=== PATIENT | female | born 2000 | race Hispanic/Latino ===

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

== ENCOUNTER 2021-06-29 14:38 | Emergency (ER) | payer OTHER, SELFPAY ==
[2021-06-29] MEDS ORDERED: Dexamethasone 4 mg/ml Vial ONE (15:05)
[2021-06-29] MEDS ORDERED: Ketorolac Tromethamine 30 MG/ML VIAL ONE (15:05)
[2021-06-29] MEDS ORDERED: Acetaminophen 500 MG TAB ONE (15:05)
== END 2021-06-29 15:45 | disposition home or self-care (01) ==
LOC: NAV ERS 14:38
DX: M54.5 Low back pain (principal); E11.9 Type 2 diabetes mellitus without complications
CPT/HCPCS: 96372; 99283; J1100; J1885

== ENCOUNTER 2023-03-24 19:49 | Emergency (ER) | payer OTHER, SELFPAY ==
[2023-03-24] MEDS ORDERED: Lidocaine 1% w/Epinephrine 1:100K 20 ML VIAL ONE (20:17)
[2023-03-24] MEDS ORDERED: Bacitracin 1 PK ONE (20:20)
[2023-03-24] MEDS ORDERED: Boostrix 0.5 ML (Tdap) VIAL (>/=7 yrs of age) ONE (20:20)
[2023-03-24] MEDS ORDERED: Rabies Immune Globulin/PF 300 UNITS/ML VIAL ONE ×2 (20:52→21:03)
[2023-03-24] MEDS ORDERED: Rabies Vaccine Human 2.5 UNITS VIAL ONE (20:54)
[2023-03-24] MEDS ORDERED: Amoxicillin/Potassium Clav 875 MG TAB ONE (22:02)
== END 2023-03-24 22:05 | disposition home or self-care (01) ==
LOC: NAV ERS 19:49
DX: S81.851A Open bite, right lower leg, initial encounter (principal); S81.852A Open bite, left lower leg, initial encounter; E11.9 Type 2 diabetes mellitus without complications; W54.0XXA Bitten by dog, initial encounter; Z23 Encounter for immunization
CPT/HCPCS: 12004; 90375; 90471; 90472; 90675; 90715; 96372

== ENCOUNTER 2023-03-29 16:52 | Emergency (ER) | payer SELFPAY | END 2023-03-29 17:17 | disposition home or self-care (01) | LOC: NAV ERS 16:52 | DX: L03.115 Cellulitis of right lower limb (principal); E11.9 Type 2 diabetes mellitus without complications | CPT/HCPCS: 99283 ==

== ENCOUNTER 2023-03-31 13:05 | Emergency (ER) | payer SELFPAY ==
[2023-03-31] MEDS ORDERED: Rabies Vaccine Human 2.5 UNITS VIAL ONE (13:10)
== END 2023-03-31 13:38 | disposition home or self-care (01) ==
LOC: NAV ERS 13:05
DX: Z23 Encounter for immunization (principal)
CPT/HCPCS: 90471; 90675

== ENCOUNTER 2023-04-03 08:51 | Emergency (ER) | payer SELFPAY ==
[2023-04-03] MEDS ORDERED: Bacitracin 1 PK ONE (09:58)
== END 2023-04-03 10:10 | disposition home or self-care (01) ==
LOC: NAV ERS 08:51
DX: S81.852D Open bite, left lower leg, subsequent encounter (principal); S81.851D Open bite, right lower leg, subsequent encounter; Z48.02 Encounter for removal of sutures; W54.0XXD Bitten by dog, subsequent encounter

== ENCOUNTER 2023-08-09 22:43 | Emergency (ER) | payer OTHER, SELFPAY | END 2023-08-09 23:05 | disposition home or self-care (01) | LOC: NAV ERS 22:43 | DX: R04.0 Epistaxis (principal); E11.9 Type 2 diabetes mellitus without complications; D64.9 Anemia, unspecified; E66.9 Obesity, unspecified | CPT/HCPCS: 99283 ==

== ENCOUNTER 2024-05-18 22:35 | Emergency (ER) | payer OTHER, SELFPAY ==
[2024-05-18] MEDS ORDERED: Ibuprofen 800 MG TAB ONE (23:06)
[2024-05-18] MEDS ORDERED: HYDROcodone/Acetaminophen 10/325 mg Tablet ONE (23:06)
[2024-05-18 23:25] LABS: Pregnancy Test - Urine (BHCG) Negative (Negative); Pregu Control Background? CLEAR/WHITE (CLR/WHITE); Pregu Control Bar Appear? YES (CONTROL BAR); Specific Gravity 1.023 (1.002-1.036)
== END 2024-05-19 00:08 | disposition home or self-care (01) ==
LOC: NAV ERS 22:35
DX: S70.02XA Contusion of left hip, initial encounter (principal); S09.90XA Unspecified injury of head, initial encounter; J01.00 Acute maxillary sinusitis, unspecified; V48.5XXA Car driver injured in noncollision transport accident in traffic accident, initial encounter
CPT/HCPCS: 70450; 81025

== ENCOUNTER 2025-09-07 10:17 | Emergency (ER) | payer OTHER ==
[2025-09-07] MEDS ORDERED: Ibuprofen 800 MG TAB ONE (11:15)
== END 2025-09-07 11:15 | disposition home or self-care (01) ==
LOC: NAV ERS 10:17
DX: S29.011A Strain of muscle and tendon of front wall of thorax, initial encounter (principal); X58.XXXA Exposure to other specified factors, initial encounter
CPT/HCPCS: 99283

== ENCOUNTER 2025-09-07 13:15 | Emergency (ER) | payer OTHER, SELFPAY ==
[2025-09-07] MEDS ORDERED: diphenhydrAMINE 50 MG/ML VIAL ONE (13:31)
== END 2025-09-07 15:05 | disposition home or self-care (01) ==
LOC: NAV ERS 13:15
DX: T78.3XXA Angioneurotic edema, initial encounter (principal)
CPT/HCPCS: 96374; 96375; J1200; J2919

== ENCOUNTER 2025-10-27 12:34 | Emergency (ER) | payer BC, SELFPAY ==
[2025-10-27] MEDS ORDERED: diphenhydrAMINE 50 MG/ML VIAL ONE (12:49)
[2025-10-27] MEDS ORDERED: Famotidine/PF 20 mg/2ml Vial ONE (12:50)
== END 2025-10-27 14:46 | disposition home or self-care (01) ==
LOC: NAV ERS 12:34
DX: T78.3XXA Angioneurotic edema, initial encounter (principal)
CPT/HCPCS: 96374; 96375; J1200; J1308; J2919